=== PATIENT | female | born 1975 | race Caucasian/White ===

== ENCOUNTER 2017-01-31 11:38 | Emergency (ER) | payer OTHER ==
[~2017-01-31] VITALS: Ht 157.5 cm; Wt 60.0 kg
[2017-01-31 11:42] VITALS: BP 121/74; PULSE 66; RESP 18; TEMP 98.5; O2SAT 98
[2017-01-31] MEDS: TETANUS/DIPHTHERIA TOXOID ADULT 0.5 ML VIAL IM ONE ×2 (12:00→12:30)
--- NOTE | 2017-01-31 12:05 | PD ---
HPI Chief Complaint: Fall Time Seen by Provider: 11:44 Travel History International Travel<30 days: No Contact w/Intl Traveler<30days: No Traveled to known affect area: No History of Present Illness HPI The patient is a 41-year-old female who presents to the emergency department with her mother for alcohol intoxication and a fall. The patient went out last night, which she returned home she is walking up the stairs when she fell down approximately 4 stairs. Patient struck her head, is unsure if she had a loss of consciousness. She does complain of a hematoma over the frontal forehead, some pain around the left eye, an abrasion/laceration under the chin. She also complains of right ankle pain with difficulty bearing weight secondary to pain. Last tetanus shot is unknown. She denies any neck pain, chest pain, shortness breath, nausea, vomiting, or abdominal pain. She is currently on her menstrual cycle with some vaginal bleeding. She denies any abdominal or pelvic discomfort. Symptoms are moderate, possibly exacerbated after drinking alcohol, and there are no current alleviating factors. [facility] Past Medical History Medical History: Denies Significant Hx ?: Not LMP: 01/28/17 Past Surgical History Narrative Surgical Noncontributory Social History Alcohol Use: Yes Tobacco Use: Yes Allergies-Medications (Allergen,Severity, Reaction): Coded Allergies: No Known Allergies (Unverified , 01/31/17) Review of Systems Except as stated in HPI: all other systems reviewed are Neg Eyes: No: Blurred Vision, Visual changes HENT: Positive: Headaches, Other (abrasion and a laceration under the chin), No : Neck Pain Cardiovascular: No: Chest Pain or Discomfort Respiratory: No: Shortness of Breath Gastrointestinal: No: Nausea, Vomiting Neurologic: No: Dizziness Physical Exam Narrative GENERAL: Awake, alert, 41-year-old female appears her stated age and appears be intoxicated. SKIN: Focused skin assessment warm/dry. HEAD: Hematoma noted over the mid to left frontal forehead. EYES: Pupils equal and round. Pupils are 4 mm bilateral and reactive. EOMs are intact. Patient is able to see fingers at a distance of 2 feet without difficulty. Mild bilateral injection. ENT: No nasal bleeding or discharge. Mucous membranes pink and moist. NECK: Trachea midline. No JVD. No tenderness of the cervical vertebrae. CARDIOVASCULAR: Regular rate and rhythm. No murmur appreciated. RESPIRATORY: No accessory muscle use. Clear to auscultation. Breath sounds equal bilaterally. GASTROINTESTINAL: Abdomen soft, non-tender, nondistended. No rebound tenderness. MUSCULOSKELETAL: Patient is able fully flex and extend the elbows and wrist bilateral. Intrinsic and muscles are intact. Mild tenderness of the medial lateral malleus of the right foot as well as over the proximal right foot with mild edema and ecchymosis. NEUROLOGICAL: Awake and alert. No obvious cranial nerve deficits. Motor grossly within normal limits. Normal speech. Oriented to person and place. PSYCHIATRIC: Appears intoxicated. Data Data Last Documented VS Vital Signs Date Time Temp Pulse Resp B/P (MAP) Pulse Ox O2 Delivery O2 Flow Rate FiO2 01/31/17 12:38 99 Room Air 01/31/17 11:42 98.5 66 18 121/74 (90) Orders Orders Ct Brain W/O Iv Contrast(Rout) (01/31/17 ) Ct Facial Bones W/O Iv Cont (01/31/17 ) Ankle, Limited (Ap&Lat) (01/31/17 ) Foot, Limited (2vws) (01/31/17 ) Tetanus/Diphtheria Tox Adult (Tetanus/Di (01/31/17 12:00) Ed Urine Pregnancytest Poc (01/31/17 11:55) Ketorolac Inj (Toradol Inj) (01/31/17 13:00) Proparacaine 0.5% Opth Soln (Alcaine 0.5 (01/31/17 13:00) MDM Medical Decision Making Medical Screen Exam Complete: Yes Emergency Medical Condition: Yes Medical Record Reviewed: Yes Interpretation(s) Last Impressions Head CT 01/31/17 0000 Signed Impressions: Service Date/Time: Tuesday, January 31, 2017 12:42 - CONCLUSION: Negative noncontrast head CT. Chi Shell MD Foot X-Ray 01/31/17 0000 Signed Impressions: Service Date/Time: Tuesday, January 31, 2017 12:16 - CONCLUSION: Negative limited two-view study. Chi Shell MD Ankle X-Ray 01/31/17 0000 Signed Impressions: Service Date/Time: Tuesday, January 31, 2017 12:13 - CONCLUSION: Negative limited 2 view study. If further evaluation is clinically indicated then the standard 3 view study would be recommended. Chi Shell MD CT facial bones reveals no acute disease. Differential Diagnosis Differential diagnosis includes alcohol intoxication, mechanical fall, closed head injury, intracranial hemorrhage, hematoma, orbital fracture, ankle fracture , foot fracture, contusion. Narrative Course CT of the brain and facial bones was obtained. X-ray the right ankle and foot was obtained. The patient's tetanus shot was updated. Bedside UA test was negative. X-ray of the foot and ankle are negative for fracture. CT the brain and facial bones is negative for fracture and intracranial hemorrhage. One drop of proparacaine was applied to the left eye in the left eye was examined with fluoroscein present. Patient has a small corneal abrasion over the lateral left aspect on exam. The patient will be placed on eyedrops. The patient was eating [employer] cheeseburger and drinking [employer] without difficulty. He was administered Toradol 60 mg IM for pain. She will be discharged home on ibuprofen and eyedrops. She is advised to follow-up with her primary physician and to decrease alcohol use. Diagnosis Primary Impression: Closed head injury Qualified Codes: S09.90XA - Unspecified injury of head, initial encounter Additional Impressions: Right ankle pain Qualified Codes: M25.571 - Pain in right ankle and joints of right foot Left corneal abrasion Qualified Codes: S05.02XA - Injury of conjunctiva and corneal abrasion without foreign body, left eye, initial encounter Patient Instructions: General Instructions Additional Instructions: Medications as directed. Elevate and ice right ankle. Activity as tolerated. Work excuse for 2 days. Follow-up with her primary physician. Please provide the patient a copy of her x-ray results and CT results at discharge. Med/Other Pt SpecificInfo: Prescription(s) given Scripts Polymyxin B-Trimethoprim Opth Drops (Polytrim Opth Drops) 10,000-0.1 Unit/Ml-% Soln 1 DROP LEFT EYE Q6HR for Mgmt Bacterial Infection for 7 Days, #1 BOTTLE 0 Refills Prov: Karlos Blankenship MD 01/31/17 Ibuprofen (Ibuprofen) 600 Mg Tab 600 MG PO Q6H Y for Pain/Inflammation, #20 TAB 0 Refills Prov: Karlos Blankenship MD 01/31/17 Disposition: 01 DISCHARGE HOME Condition: Stable Karlos Blankenship MD Jan 31, 2017 12:05
--- NOTE | 2017-01-31 12:31 | RADRPT ---
EXAM DATE/TIME: 01/31/2017 12:16 [facility] COMPARISON: No previous studies available for comparison. INDICATIONS : Right foot pain post fall down stairs. MEDICAL HISTORY : None. SURGICAL HISTORY : None. ENCOUNTER: Initial ACUITY: 1 day PAIN SCORE: 10/10 LOCATION: Right foot. FINDINGS: A limited two-view examination of the right foot was obtained and not a standard 3 view exam. This li mits the sensitivity. There is no acute fracture or malalignment identified. The metatarsals and phal anges are intact. No focal soft tissue abnormality is identified radiographically. CONCLUSION: Negative limited two-view study. Chi Shell MD on January 31, 2017 at 12:29 Board Certified Radiologist. This report was verified electronically.
--- NOTE | 2017-01-31 12:31 | RADRPT ---
EXAM DATE/TIME: 01/31/2017 12:13 [facility] COMPARISON: No previous studies available for comparison. INDICATIONS : Right ankle pain post fall down stairs. MEDICAL HISTORY : None. SURGICAL HISTORY : None. ENCOUNTER: Initial ACUITY: 1 day PAIN SCORE: 10/10 LOCATION: Right ankle. FINDINGS: Limited two-view examination of the right ankle was obtained in standard 3 view trauma series limitin g the sensitivity was performed of the right ankle. The bony structures are in normal alignment. No evidence of fracture, dislocation, or soft tissue swelling. No radiopaque foreign bodies are seen. Bony mineralization is normal. CONCLUSION: Negative limited 2 view study. If further evaluation is clinically indicated then the standard 3 view study would be recommended. Chi Shell MD on January 31, 2017 at 12:28 Board Certified Radiologist. This report was verified electronically.
--- NOTE | 2017-01-31 12:51 | RADRPT ---
EXAM DATE/TIME: 01/31/2017 12:42 [facility] COMPARISON: No previous studies available for comparison. INDICATIONS : Tripped and fell down four stairsmulti abrasions. RADIATION DOSE: 34.13 CTDIvol (mGy) MEDICAL HISTORY : None SURGICAL HISTORY : None. ENCOUNTER: Initial ACUITY: 1 day PAIN SCALE: 6/10 LOCATION: cranial TECHNIQUE: Multiple contiguous axial images were obtained of the head. Using automated exposure control and adj ustment of the mA and/or kV according to patient size, radiation dose was kept as low as reasonably a chievable to obtain optimal diagnostic quality images. DICOM format image data is available electro nically for review and comparison. FINDINGS: CEREBRUM: The ventricles are normal for age. No evidence of midline shift, mass lesion, hemorrhage or acute in farction. No extra-axial fluid collections are seen. POSTERIOR FOSSA: The cerebellum and brainstem are intact. The 4th ventricle is midline. The cerebellopontine angle i s unremarkable. EXTRACRANIAL: The visualized portion of the orbits is intact. SKULL: The calvaria is intact. No evidence of skull fracture. CONCLUSION: Negative noncontrast head CT. Chi Shell MD on January 31, 2017 at 12:49 Board Certified Radiologist. This report was verified electronically.
[2017-01-31] MEDS ORDERED: KETOROLAC TROMETHAMINE 60 MG/2 ML (IM) VIAL IM ONE (13:00)
[2017-01-31] MEDS ORDERED: PROPARACAINE HCL 0.5% OPHT SOLN 15 ML BTL LEFT EYE ONE (13:00)
--- NOTE | 2017-01-31 13:19 | RADRPT ---
EXAM DATE/TIME: 01/31/2017 12:42 [facility] COMPARISON: No previous studies available for comparison. INDICATIONS : Fell down steps, multipal abrasions, left eye pain and right facial pain. RADIATION DOSE: 50.12 CTDIvol (mGy) MEDICAL HISTORY : None SURGICAL HISTORY : None. ENCOUNTER: Initial ACUITY: 1 day PAIN SCORE: 6/10 LOCATION: facial TECHNIQUE: Volumetric scanning of the facial bones was performed. Using automated exposure control and adjustme nt of the mA and/or kV according to patient size, radiation dose was kept as low as reasonably achiev able to obtain optimal diagnostic quality images. DICOM format image data is available electronicThe [employer] y for review and comparison. FINDINGS: ORBITS: The orbital and infraorbital osseous structures are intact. The retroconal structures have a normal configuration. No radiopaque foreign bodies are seen. NASAL BONE: The nasal bone and maxillary spine are intact ZYGOMATIC ARCHES: Symmetric without evidence of fracture. SINUSES: The maxillary, ethmoid and frontal sinuses are intact. No air-fluid levels seen. NASAL CAVITY: The nasal septum is intact and midline. The lacrimal ducts are intact. SOFT TISSUES: No radiopaque foreign bodies seen. No soft-tissue swelling is seen. INTRACRANIAL: No intracranial air seen. CRIBIFORM PLATE: Grossly intact. CONCLUSION: No acute disease. Hany Perez MD on January 31, 2017 at 13:12 Board Certified Radiologist. This report was verified electronically.
[2017-01-31] MEDS ORDERED: POLY10O LEFT EYE (13:30)
[2017-01-31] MEDS ORDERED: IBUP-232 PO (13:30)
[2017-01-31 13:54] VITALS: BP 133/78
== END 2017-01-31 14:23 | disposition home or self-care (01) ==
LOC: NEPC 11:38
DX: S09.90XA Unspecified injury of head, initial encounter (principal); M25.571 Pain in right ankle and joints of right foot; S05.02XA Injury of conjunctiva and corneal abrasion without foreign body, left eye, initial encounter; Z72.0 Tobacco use; W10.9XXA Fall (on) (from) unspecified stairs and steps, initial encounter
CPT/HCPCS: 70450; 70486; 73600; 73620; 84703; 96372; 99285; J1885; 90471; 90714